=== PATIENT | female | born 1980 | race Caucasian/White ===

== ENCOUNTER 2023-05-23 05:36 | Outpatient (CLI) | payer MEDICAID, SELFPAY ==
[2023-05-23 14:09] LABS: Abs Immature Grans 0.04 10^3/uL (0.0-0.06); Absolute Basophil Count 0.07 10^3/uL (0.0-0.2); Absolute Eosinophil Count 0.24 10^3/uL (0.0-0.7); Absolute Lymphocyte Count 3.39 10^3/uL (1.2-3.4); Absolute Monocyte Count 0.49 10^3/uL (0.1-0.8); Basophils % 0.7; Eosinophils % 2.3; HCT 41.5 % (36.0-46.0); HGB 13.6 g/dL (11.2-15.7); Immature Grans % 0.4; Lymphocytes % 32.2; MCH 29.8 pg (27.0-33.0); MCHC 32.8 % (32.0-36.0); MCV 91 fL (80-95); MPV 9.4 fL (8.0-11.0); Monocytes % 4.7; Neutrophils % 59.7; Platelet Count 363 10^3/uL (130-400); RBC 4.56 10^6/uL (3.93-5.22); RDW 13.1 % (11.7-14.6); RDW-SD 43.4 fL; WBC 10.53 10^3/uL (4.4-10.8)
[2023-05-23 14:28] LABS: Hemoglobin A1C 5.5 % (<5.7)
[2023-05-23 15:20] LABS: ALT 19 U/L (14-59); AST 12 U/L (15-37); Albumin 3.3 g/dL (3.4-5.0); Alkaline Phosphatase 72 U/L (46-116); Anion Gap 8.6 mmol/L (3-11); BUN 10 mg/dL (7-18); Bilirubin, Total 0.5 mg/dL (0.2-1.0); CO2 27.4 mmol/L (21.0-32.0); CREATININE 0.7 mg/dL (0.55-1.02); Calcium 8.9 mg/dL (8.5-10.1); Calculated LDL 90 mg/dL (<100); Chloride 105 mmol/L (98-107); Cholesterol 208 mg/dL (<200); Estimated GFR 109.98 (mL/min/1.73m2); Glucose 101 mg/dL (74-106); HDL Cholesterol 99 mg/dL (40-60); Potassium 3.3 mmol/L (3.5-5.1); Sodium 141 mmol/L (136-145); TSH (W/Ref FT4) 1.16 uIU/mL (0.36-3.74); Total Protein 7.3 g/dL (6.4-8.2); Triglyceride 96 mg/dL (<150); Vitamin B12 398 pg/mL (193-986)
== END 2023-05-23 05:37 | disposition home or self-care (01) ==
PROVIDERS: Visit Provider Nurse Practitioner Family
DX: E03.9 Hypothyroidism, unspecified (principal); I10 Essential (primary) hypertension; E78.5 Hyperlipidemia, unspecified; E66.9 Obesity, unspecified
CPT/HCPCS: 36415; 80053; 80061; 82306; 82607; 83036; 84443; 85025

== ENCOUNTER 2023-10-18 02:44 | Outpatient (CLI) | payer MEDICAID, SELFPAY ==
--- NOTE | 2023-10-18 | DI.MAMMO_ITS ---
Exam(s) MAMMO SCREENING EXAM: MAMMO SCREENING CLINICAL HISTORY: ROUTINE MAMMOGRAM TECHNIQUE: Bilateral full field digital CC and MLO mammographic images were obtained with 3D tomosyn thesis and utilizing computer aided detection (CAD). COMPARISON: This is a baseline examination. FINDINGS: Masses/Architectural Distortion: None seen. Microcalcifications: No suspicious pleomorphic-type are seen. Skin Thickening/Nipple Retraction: None. IMPRESSION: 1. No evidence for malignancy is seen at this time. 2. Unless there is more urgent need, screening mammography is recommended, as per [employer] guidelines. BI-RADS Category 1 - Negative Breast Density - Category B - Scattered areas of fibroglandular density Breast density category C or D implies that the patient has dense breast tissue. Dense breast tissue is very common and is not abnormal but dense breast tissue can make it harder to find cancer on a ma mmogram. Also, dense breast tissue may increase their breast cancer risk. This information about the result of the mammogram report was provided to the patient to raise their awareness. Use this report when you speak with the patient about their risks for breast cancer, which includes their family hist ory. At that time, you may recommend for more screening tests (Ultrasound or MRI) as they might be us eful based on their risk. A negative radiographic report should not delay biopsy if a dominant or clinically suspicious mass is present. Up to ten percent of cancers are not identified on mammography. A negative report may reinforce clinical impression. Adenosis and dense breasts may obscure an underlying neoplasm. False positive reports average 6 to 10%. Patient will receive a letter notifying them of these results.
== END 2023-10-18 03:04 ==
LOC: DI 02:44
PROVIDERS: Visit Provider Nurse Practitioner Family
DX: Z12.31 Encounter for screening mammogram for malignant neoplasm of breast (principal)
CPT/HCPCS: 77063; 77067

== ENCOUNTER 2024-10-20 10:53 | Outpatient (CLI) | payer MEDICAID, SELFPAY ==
--- NOTE | 2024-10-20 | DI.MAMMO_ITS ---
Exam(s) MAMMO SCREENING EXAM: MAMMO SCREENING CLINICAL HISTORY: SCREENING MAMMO Z12.31. TECHNIQUE: Bilateral full field digital CC and MLO mammographic images were obtained with 3D tomosynthesis and utilizing computer aided detection (CAD). COMPARISON: Compared to the prior baseline mammogram of October 2023. FINDINGS: There are no new right breast findings. In the left breast there is an asymmetric density-possible nodule seen on the 3D cc view measuring approximately 5 x 4 mm and located approximately 6 cm in from the nipple. Further imaging recommended. There are no malignant-appearing microcalcification groups is region or elsewhere in either breast. There is no significant architectural distortion nor skin thickening-retraction. IMPRESSION: 1. No radiographic evidence of malignancy in the right breast. 2. New asymmetric density-possible 5 mm nodule in the lateral aspect of the left breast. Spot compression view and ultrasound recommended. BI-RADS Category 0 - Incomplete: Need additional imaging evaluation Breast Density - Category B - There are scattered areas of fibroglandular density. Breast density Category C or D implies that the patient has dense breast tissue. Dense breast tissue can make it harder to find cancer on a mammogram. Dense breast tissue is also associated with an increased risk of breast cancer. This information about the result of the mammogram report was provided to the patient to raise their awareness. Use this report when you speak with the patient about their risks for breast cancer, which includes their family history. At that time, you may recommend additional screening tests (Ultrasound or MRI) as these tests may add significant information. A negative radiographic report should not delay biopsy if a dominant or clinically suspicious mass is present. Up to ten percent of cancers are not identified on mammography. A negative report may reinforce clinical impression. Adenosis and dense breasts may obscure an underlying neoplasm. False positive reports average 6 to 10%. Patient will receive a letter notifying them of these results.
== END 2024-10-20 11:13 ==
LOC: DI 10:54
PROVIDERS: PCP Nurse Practitioner Family; Visit Provider Nurse Practitioner Family
DX: Z12.31 Encounter for screening mammogram for malignant neoplasm of breast (principal)
CPT/HCPCS: 77063; 77067

== ENCOUNTER 2024-10-23 03:19 | Outpatient (CLI) | payer MEDICAID, SELFPAY ==
--- NOTE | 2024-10-23 | DI.US_ITS ---
Exam(s) MAMMO SCREEN CALL BACK UNI US BREAST LT COMPLETE EXAM: MAMMO SCREEN CALL BACK UNI-LEFT AND COMPLETE LEFT BREAST ULTRASOUND CLINICAL HISTORY: ASYMMETRIC DENSITY-POSSIBLE 5MM NODULE LATERAL ASPECT LT BREAST R92.8. TECHNIQUE: Unilateral LEFT BREAST spot mammographic images obtained with 3D tomosynthesisand utilizing computer aided detection (CAD). . Complete LEFT breast Ultrasound was also performed, including all 4 quadrants, the retroareolar region, and the ipsilateral axilla. COMPARISON: Prior mammograms were reviewed. This additional imaging was performed due to findings described on the recent screening mammogram of 10/20/2024. FINDINGS: DIAGNOSTIC MAMMOGRAM: Additional mammographic views performed todayrender this area less concerning. COMPLETE LEFT BREAST ULTRASOUND: Ultrasound performed today reveals nothing to correspond to the finding on the recent screening mammogram. Incidentally noted is a small benign 3 mm microcysts at the 12 o'clock position.. Scanning of the ipsilateral axilla reveals no significant adenopathy. IMPRESSION: 1. No radiographic evidence of malignancy. 2. No ultrasound evidence of malignancy Appropriate follow-up is to keep this patient on her yearly mammogram schedule, with earlier imaging if a self detected breast change is noted. The patient was informed of these findings and recommendations by myself prior to leaving the department today. BI-RADS Category 2 - Benign Findings Breast Density - Category B - There are scattered areas of fibroglandular density. Breast density Category C or D implies that the patient has dense breast tissue. Dense breast tissue can make it harder to find cancer on a mammogram. Dense breast tissue is also associated with an increased risk of breast cancer. This information about the result of the mammogram report was provided to the patient to raise their awareness. Use this report when you speak with the patient about their risks for breast cancer, which includes their family history. At that time, you may recommend additional screening tests (Ultrasound or MRI) as these tests may add significant information. A negative radiographic report should not delay biopsy if a dominant or clinically suspicious mass is present. Up to ten percent of cancers are not identified on mammography. A negative report may reinforce clinical impression. Adenosis and dense breasts may obscure an underlying neoplasm. False positive reports average 6 to 10%. Patient will receive a letter notifying them of these results.
== END 2024-10-23 03:39 ==
PROVIDERS: PCP Nurse Practitioner Family; Visit Provider Nurse Practitioner Family
DX: Z12.31 Encounter for screening mammogram for malignant neoplasm of breast (principal); R92.8 Other abnormal and inconclusive findings on diagnostic imaging of breast
CPT/HCPCS: 76642; 77063; 77067